=== PATIENT | male | born 1990 | race Caucasian/White ===

== ENCOUNTER 2020-11-22 18:53 | Emergency (ER) | payer OTHER ==
[2020-11-22 19:08] VITALS: BP 137/89; PULSE 75; RESP 18; TEMP 98.7
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
== END 2020-11-22 19:53 | disposition home or self-care (01) ==
LOC: EC 18:53
DX: Z02.83 Encounter for blood-alcohol and blood-drug test (principal); Z04.1 Encounter for examination and observation following transport accident
CPT/HCPCS: 99281